=== PATIENT | female | born 1980 | race Caucasian/White ===

== ENCOUNTER 2021-02-19 12:13 | Emergency (ER) | payer SELFPAY ==
[~2021-02-19] VITALS: Ht 162.6 cm; Wt 117.2 kg
[2021-02-19] MEDS ORDERED: ARMOUR THYROID15 MG (12:36)
[2021-02-19] MEDS ORDERED: LEVOTHYROXINE100 MC2 (12:36)
[2021-02-19] MEDS ORDERED: CYCLOBENZAPRINE5 MG PO (15:18)
[2021-02-19] MEDS ORDERED: NAPROSYN500 MG PO (15:18)
== END 2021-02-19 15:28 | disposition home or self-care (01) ==
LOC: FSED 12:38
DX: M79.604 Pain in right leg (principal); M76.891 Other specified enthesopathies of right lower limb, excluding foot; E03.9 Hypothyroidism, unspecified; E66.9 Obesity, unspecified
CPT/HCPCS: 80053; 85025; 93971; 99283